=== PATIENT | male | born 1995 | race African-American/Black ===

== ENCOUNTER 2018-02-18 10:43 | Emergency (ER) | payer SELFPAY ==
[2018-02-18 10:48] VITALS: BP 136/94
--- NOTE | 2018-02-18 11:48 | ER Document Report ---
ED General - General Chief Complaint: Psych Problem Stated Complaint: PSYCH EVAL Time Seen by Provider: 02/18/18 10:58 Mode of Arrival: Ambulatory Information source: Patient, Parent Notes: 22-year-old male presents with his father with concerns for substance abuse. Family notes that they have been seeing a therapist and there was a concern of issues versus depression at home. Patient himself denies any suicidal homicidal ideations notes he did think of hurting himself 2 years ago but has not had such thoughts since. Patient notes he was taking some pills for cough medication a month or 2 ago TRAVEL OUTSIDE OF THE [place] IN LAST 30 DAYS: No - HPI Onset: Other Onset/Duration: Intermittent Quality of pain: No pain Severity: Mild Pain Level: Denies Associated symptoms: Other Exacerbated by: Denies Relieved by: Denies Similar symptoms previously: Yes Recently seen / treated by doctor: Yes - Related Data Allergies/Adverse Reactions: No Known Allergies Allergy (Verified 02/18/18 10:57) Past Medical History - Social History Smoking Status: Current Some Day Smoker Cigarette use (# per day): Yes Chew tobacco use (# tins/day): No Smoking Education Provided: No Frequency of alcohol use: None Drug Abuse: None Family History: Reviewed & Not Pertinent Patient has suicidal ideation: No Patient has homicidal ideation: No Renal/ Medical History: Denies: Hx Peritoneal Dialysis - Immunizations Hx Diphtheria, Pertussis, Tetanus Vaccination: Yes Review of Systems - Review of Systems Notes: REVIEW OF SYSTEMS: CONSTITUTIONAL : Denies fever, chills, or sweats. Denies recent illness. EENT: Denies eye, ear, throat, or mouth pain or symptoms. Denies nasal or sinus congestion or discharge. Denies throat, tongue, or mouth swelling or difficulty swallowing. CARDIOVASCULAR: Denies chest pain. Denies palpitations or racing or irregular heart beat. Denies ankle edema. RESPIRATORY: Denies cough, cold, or chest congestion. Denies shortness of breath, difficulty breathing, or wheezing. GASTROINTESTINAL: Denies abdominal pain or distention. Denies nausea, vomiting , or diarrhea. Denies blood in vomitus, stools, or per rectum. Denies black, tarry stools. Denies constipation. GENITOURINARY: Denies difficulty urinating, painful urination, burning, frequency, blood in urine, or discharge. MUSCULOSKELETAL: Denies back or neck pain or stiffness. Denies joint pain or swelling. SKIN: Denies rash, lesions or sores. HEMATOLOGIC : Denies easy bruising or bleeding. LYMPHATIC: Denies swollen, enlarged glands. NEUROLOGICAL: Denies confusion or altered mental status. Denies passing out or loss of consciousness. Denies dizziness or lightheadedness. Denies headache. Denies weakness or paralysis or loss of use of either side. Denies problems with gait or speech. Denies sensory loss, numbness, or tingling. Denies seizures. PSYCHIATRIC: Admits to intermittent depression ALL OTHER SYSTEMS REVIEWED AND NEGATIVE. Dictation was performed using [employer] voice recognition software PHYSICAL EXAMINATION: GENERAL: Well-appearing, well-nourished and in no acute distress. HEAD: Atraumatic, normocephalic. EYES: Pupils equal round and reactive to light, extraocular movements intact, sclera anicteric, conjunctiva are normal. ENT: Nares patent, oropharynx clear without exudates. Moist mucous membranes. NECK: Normal range of motion, supple without lymphadenopathy LUNGS: Breath sounds clear to auscultation bilaterally and equal. No wheezes rales or rhonchi. HEART: Regular rate and rhythm without murmurs ABDOMEN: Soft, nontender, nondistended abdomen. No guarding, no rebound. No masses appreciated. Musculoskeletal: Normal range of motion, no pitting or edema. No cyanosis. NEUROLOGICAL: Cranial nerves grossly intact. Normal speech, normal gait. Normal sensory, motor exams PSYCH: Normal mood, normal affect. SKIN: Warm, Dry, normal turgor, no rashes or lesions noted. Physical Exam - Vital signs Vitals: Temp Pulse Resp BP Pulse Ox 98.4 F 86 18 136/94 H 97 02/18/18 10:47 02/18/18 10:47 02/18/18 10:47 02/18/18 10:47 02/18/18 10:47 Course - Re-evaluation Re-evalutation: 02/18/18 11:56 This appears to be a social issue in the family, especially given the complaints are presented, there are no life-threatening issues noted at this time, full physical examination was performed was benign, the patient's mental health appears stable, he has no suicidal homicidal ideations, I did have mental health evaluate the patient and they agree with assessment, they will provide resources for the family and outpatient follow-up After performing a Medical Screening Examination, I estimate there is LOW risk for any life threatening mental health issues. At this time the patient looks extremely well and has not attempted severe self harm. I have reevaluated this patient multiple times and no significant life threatening changes are noted. The patient and I have discussed the diagnosis and risks, and we agree with discharging home with close follow-up with the understanding that symptoms and presentations can change. We also discussed returning to the Emergency Department immediately if new or worsening symptoms occur. We have discussed the symptoms which are most concerning (hallucinations, thoughts or actions of self harm or harm to others) that necessitate immediate return. - Vital Signs Vital signs: Temp Pulse Resp BP Pulse Ox 98.4 F 86 18 136/94 H 97 02/18/18 10:47 02/18/18 10:47 02/18/18 10:47 02/18/18 10:47 02/18/18 10:47 Discharge - Discharge Clinical Impression: Substance abuse Condition: Stable Disposition: HOME, SELF-CARE Additional Instructions: Please follow-up with the care plan provided to by mental health team
--- NOTE | 2018-02-23 09:19 | PSYCHOLOGICAL NOTE ---
Psych Note - Psych Note Psych Note: Reason for consult: substance abuse Consent Permissions: father in room per patient's request Pt comes to ed from home via pov brought by father for c/o wanting a referral to [facility] or [facility]. pt states he was abusing cough and cold medicine, last intake was december. Pt states this happened for approx 2 weeks taking upwards of 16-18tabs daily. Pt reports he was using it for depression, at the time related to differences with parent. pt state he has never had thoughts of hurting or harming himself. Pt states he feels as though the has developed brain damage on the left side of his brain from abusing these meds. Pt has been to [facility] recently. Pt went to [place] previously with marijuana abuse. pt has been seeing outpt therapy with father. Patient disclosed that he had been using cough and cold pills in attempt to get high is concerned he may have developed brain damage in his left side of his brain; his past reported use is Dec. He continued disclosed that when he was 19 he did marijuana and was sent to [place]. He disclosed that he uses drugs because of his depression however he is "ready to get help." He says he has a difficult time with focus in keeping a job. Comparing current his depression to his depression level when he was 19 and sent to [facility] he disclosed "I am better than I was before." Patient denies any current thoughts of suicidal ideation stating passive thoughts over a year ago "when I was 21." Patient's father disclosed concern the patient may have other psychological issues. He reports the patient got a speeding tickets and he had to remind the patient every day what day to go to court and on the day of court he was still late. 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 He disclosed his younger son is very responsible and the patient just is not. He continued to report the patient watches odd things on YouTube and pretends doing karate. patient's response to any allegation his father uses that he does not agree with is "that's a lie...I am sorry I do not agree with that... no disrespect, I just don't agree with that statement." Patient clarifies things he watches on YouTube or meditation videos as he frequently engages in meditation and other new age mind and body wellness techniques. He confirms this interesting greatly. Clinician notes father consented to tell clinician is episcopalian and disclosed he is a traditional Pentecostal. Patient is alert and orientated to person, place, time and circumstance. Mood is nervous with restricted affect mainly when disagreeing with his father. Patient denies suicidal and homicidal ideation. Delusions are absent and behaviors congruent with intact reality based presentation i.e. organized and linear thought processes. Eye contact was well-maintained. Intellectual abilities appear to be within the average range. Conversational speech was within normal rate, tone and prosody. Attention and concentration were good. Insight, judgment, impulse control are currently good. 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 Patient requested letter of referral to an inpatient psychiatric hospital. Clinician conducted psychoeducation on the differences between inpatient psychological treatment and inpatient substance abuse treatment. Clinician also conducted brief therapeutic intervention between the patient and his father. The patient' s father felt the patient was demonstrating psychological issues while the patient was actually challenging and/or changing his spiritual beliefs and demonstrating behavioral that can be attributed to both his substance abuse and attempting to become an independent adult. Patient was not demonstrating any behaviors indicating responding to internal stimuli as he was able to hold a linear and organized conversation with no difficulty, made good eye contact, conversational speech was within normal rate, tone and prosody and all cognitive functioning such as attention, concentration, insight, judgment, and impulse control are good. Patient is recommended to follow up with substance abuse treatment and was provided the resource list to include IFS contact number for assistance in finding possible inpatient substance abuse treatment. Dr. Gresham was consult on the care and management of this patient; attending physician is in agreement with recommendations and disposition.
== END 2018-02-18 11:52 | disposition home or self-care (01) ==
LOC: ER 10:43
DX: F19.10 Other psychoactive substance abuse, uncomplicated (principal); F17.210 Nicotine dependence, cigarettes, uncomplicated
CPT/HCPCS: 99283

== ENCOUNTER 2018-05-10 12:34 | Emergency (ER) | payer SELFPAY ==
--- NOTE | 2018-05-10 12:55 | ER Document Report ---
ED General - General Stated Complaint: POSSIBLE OVERDOSE Time Seen by Provider: 05/10/18 12:52 Notes: 23-year-old male brought in by EMS after wandering around in the street acting erratic. Possible overdose. Patient not talking. Patient is sitting upright. In no acute distress. Tachycardia but nonfebrile. Blood pressure within normal limits. Patient states that he has been on some cough medication. Patient will not answer all of the questions. TRAVEL OUTSIDE OF THE [place] IN LAST 30 DAYS: No - HPI Onset: Other - Unknown - Related Data Allergies/Adverse Reactions: No Known Allergies Allergy (Verified 02/18/18 10:57) Past Medical History - General Cannot obtain history due to: Uncooperative, Altered mental status - Social History Smoking Status: Unknown if Ever Smoked Family History: Reviewed & Not Pertinent Renal/ Medical History: Denies: Hx Peritoneal Dialysis - Immunizations Hx Diphtheria, Pertussis, Tetanus Vaccination: Yes Review of Systems - Review of Systems -: Yes ROS unobtainable due to patient's medical condition Physical Exam - Vital signs Vitals: Resp Pulse Ox 19 98 05/10/18 12:47 05/10/18 12:47 Interpretation: Tachycardic - General Notes: he is awake and alert appears slightly agitated, General: Alert agitated HEENT: Atraumatic, normocephalic, pupils equal round react to light and accommodation, extraocular muscles are intact, nose is non tender, posterior pharynx is without erythema or exudate. Tongue is unremarkable with mucous membranes dry Heart: Heart with tachycardia rate and rhythm, no murmurs, no rubs, no clicks Lungs: Lungs clear to auscultation bilaterally, no wheezes, rhonchi, rales Abdomen: Abdomen is soft, nontender, nondistended, normal bowel sounds Neuro: cranial nerves II through XII intact, reflexes intact, sensation intact, Extremities:Moving all extremities. Equal strength bilaterally in the upper lower extremities. No significant deformity Skin: No lesions. Skin intact Psych: Altered mental status. Poor insight. Poor judgment. Course - Re-evaluation Re-evalutation: 05/10/18 14:41 Patient is obviously altered. Appears to be tripping. Tachycardic at this time. Ordering Ativan and IV fluids. Attempted to get a head CT but patient would not lie still. Ordering more Ativan and more fluids at this time. 05/10/18 14:49 Patient likely suffering from Robitussin overdose. Admits to taking cough syrup but will not tell me how much. Still remains altered. Getting more Ativan as still tachycardic and altered at this time. Slightly elevated creatinine kinase but otherwise labs are fairly unremarkable. Unable to get CT head or chest x-ray due to his altered mental status. 05/10/18 15:39 Patient with PCP positive on drug screen. Consistent with this presentation here. Ativan has been given. Currently patient is still a little tachycardic with heart rate coming down. Labs otherwise unremarkable with slight elevated CK. Due to the fact that he is altered will attempt to get a head CT just to be safe but more likely this is all drug related. There is some dried blood on the patient but I have been unable to find any 05/10/18 15:43 Patient is in no acute distress at this time. I have discussed the case with my colleague Dr. Chavez. If patient is awake and alert and appropriate he will be stable for discharge. Patient may need to be observed for extended period of time. Ativan as needed for excessive agitation. Anticipate that the effects of his illicit substance usage will wear off shortly. 05/10/18 16:21 Laboratory 05/10/18 05/10/18 05/10/18 12:45 13:01 13:01 WBC 6.9 RBC 4.73 Hgb 14.1 Hct 42.5 MCV 90 MCH 29.9 MCHC 33.3 RDW 13.4 Plt Count 315 Seg Neutrophils % 56.4 Lymphocytes % 28.3 Monocytes % 12.5 Eosinophils % 2.4 Basophils % 0.4 Absolute Neutrophils 3.9 Absolute Lymphocytes 1.9 Absolute Monocytes 0.9 Absolute Eosinophils 0.2 Absolute Basophils 0.0 Sodium 145.1 H Potassium 3.7 Chloride 108 H Carbon Dioxide 30 Anion Gap 7 BUN 11 Creatinine 1.04 Est GFR ( Amer) > 60 Est GFR (Non-Af Amer) > 60 Glucose 80 Calcium 9.4 Total Bilirubin 0.8 Direct Bilirubin 0.3 Neonat Total Bilirubin Not Reportable Neonat Direct Bilirubin Not Reportable Neonat Indirect Bili Not Reportable AST 32 ALT 41 Alkaline Phosphatase 67 Creatine Kinase 210 H Total Protein 6.5 Albumin 3.9 Urine Color Urine Appearance Urine pH Ur Specific [place] Urine Protein Urine Glucose (UA) Urine Ketones Urine Blood Urine Nitrite Urine Bilirubin Urine Urobilinogen Ur Leukocyte Esterase Urine WBC (Auto) Urine RBC (Auto) U Hyaline Cast (Auto) Urine Mucus (Auto) Urine Ascorbic Acid Salicylates < 1.0 L Urine Opiates Screen Urine Methadone Screen Acetaminophen < 10 L Ur Barbiturates Screen Ur Phencyclidine Scrn Ur Amphetamines Screen U Benzodiazepines Scrn Urine Cocaine Screen U Marijuana (THC) Screen Serum Alcohol < 10 05/10/18 05/10/18 14:26 14:26 WBC RBC Hgb Hct MCV MCH MCHC RDW Plt Count Seg Neutrophils % Lymphocytes % Monocytes % Eosinophils % Basophils % Absolute Neutrophils Absolute Lymphocytes Absolute Monocytes Absolute Eosinophils Absolute Basophils Sodium Potassium Chloride Carbon Dioxide Anion Gap BUN Creatinine Est GFR ( Amer) Est GFR (Non-Af Amer) Glucose Calcium Total Bilirubin Direct Bilirubin Neonat Total Bilirubin Neonat Direct Bilirubin Neonat Indirect Bili AST ALT Alkaline Phosphatase Creatine Kinase Total Protein Albumin Urine Color YELLOW Urine Appearance CLEAR Urine pH 6.0 Ur Specific [place] 1.019 Urine Protein NEGATIVE Urine Glucose (UA) NEGATIVE Urine Ketones NEGATIVE Urine Blood NEGATIVE Urine Nitrite NEGATIVE Urine Bilirubin NEGATIVE Urine Urobilinogen 2.0 H Ur Leukocyte Esterase NEGATIVE Urine WBC (Auto) 0 Urine RBC (Auto) 1 U Hyaline Cast (Auto) 4 Urine Mucus (Auto) OCC Urine Ascorbic Acid 40 H Salicylates Urine Opiates Screen UNCONFIRMED POSITIVE Urine Methadone Screen NEGATIVE Acetaminophen Ur Barbiturates Screen NEGATIVE Ur Phencyclidine Scrn UNCONFIRMED POSITIVE Ur Amphetamines Screen NEGATIVE U Benzodiazepines Scrn NEGATIVE Urine Cocaine Screen NEGATIVE U Marijuana (THC) Screen NEGATIVE Serum Alcohol Head CT 05/10/18 13:09 IMPRESSION: NORMAL BRAIN CT WITHOUT CONTRAST. EVIDENCE OF ACUTE STROKE: NO. Chest X-Ray 05/10/18 13:10 IMPRESSION: NO ACUTE RADIOGRAPHIC FINDING IN THE CHEST. - Vital Signs Vital signs: Temp Pulse Resp BP Pulse Ox 98.1 F 119 H 24 H 134/85 H 100 05/10/18 13:19 05/10/18 13:19 05/10/18 15:01 05/10/18 15:01 05/10/18 13:19 - Laboratory Result Diagrams: 05/10/18 13:01 05/10/18 13:01 Laboratory results interpreted by me: 05/10/18 05/10/18 05/10/18 12:45 13:01 14:26 Sodium 145.1 H Chloride 108 H Creatine Kinase 210 H Urine Urobilinogen 2.0 H Urine Ascorbic Acid 40 H Salicylates < 1.0 L Acetaminophen < 10 L - EKG Interpretation by Me EKG shows normal: [place], Intervals, QRS Complexes, ST-T Waves Rate: Tachycardia Discharge - Discharge Clinical Impression: Polysubstance abuse Altered mental status Qualifiers: Altered mental status type: transient alteration of awareness Qualified Code(s) : R40.4 - Transient alteration of awareness Condition: Good Disposition: HOME, SELF-CARE Instructions: Instructions for Home Care Following a Drug Overdose ([facility]), Drug Screening ([facility]) Additional Instructions: It appears that you were altered today because you have used mind altering substances. This is not advisable. Avoid alcohol and drugs. Get plenty of sleep and drink plenty of liquids. Please follow-up with your regular doctor. If symptoms persist please return.
[2018-05-10] MEDS ORDERED: NORMAL SALINE 1000 ML 1,000 ML IV ONE ×2 (13:10→14:37)
[2018-05-10 13:18] LABS: ACETAMINOPHEN < 10 ug/mL (10-30); SALICYLATE < 1.0 mg/dL (2.0-20.0)
[2018-05-10 13:57] LABS: ABSOLUTE EOSINOPHILS # (AUTO) 0.2 10^3/uL (0.0-0.6); ABSOLUTE LYMPHOCYTES (AUTO) 1.9 10^3/uL (0.5-4.7); ABSOLUTE MONOCYTES (AUTO) 0.9 10^3/uL (0.1-1.4); ABSOLUTE NEUT (AUTO) 3.9 10^3/uL (1.7-8.2); BASOPHILS % (AUTO) 0.4 % (0-2); EOSINOPHILS % (AUTO) 2.4 % (0-6); HEMATOCRIT 42.5 % (37.9-51.0); HEMOGLOBIN 14.1 g/dL (13.5-17.0); LYMPHOCYTES % (AUTO) 28.3 % (13-45); MEAN CORPUSCULAR HEMOGLOBIN 29.9 pg (27.0-33.4); MEAN CORPUSCULAR HGB CONC 33.3 g/dL (32.0-36.0); MEAN CORPUSCULAR VOLUME 90 fl (80-97); MONOCYTES % (AUTO) 12.5 % (3-13); PLATELET COUNT 315 10^3/uL (150-450); RED BLOOD COUNT 4.73 10^6/uL (4.35-5.55); RED CELL DISTRIBUTION WIDTH 13.4 % (11.5-14.0); SEGMENTED NEUTROPHILS % (AUTO) 56.4 % (42-78); TOTAL CELLS COUNTED % (AUTO) 100 %; WHITE BLOOD COUNT 6.9 10^3/uL (4.0-10.5)
[2018-05-10] MEDS ORDERED: LORAZEPAM INJ 2 MG/1 ML VIAL IV ONE ×2 (14:04→14:41)
[2018-05-10 14:06] LABS: ALANINE AMINOTRANSFERASE 41 U/L (21-72); ALBUMIN 3.9 g/dL (3.5-5.0); ALCOHOL < 10 mg/dL (NONE DETECTED); ALKALINE PHOSPHATASE 67 U/L (38-126); ANION GAP 7 (5-19); ASPARTATE AMINO TRANSFERASE 32 U/L (17-59); BILIRUBIN,DIRECT 0.3 mg/dL (0.0-0.4); BILIRUBIN,TOTAL 0.8 mg/dL (0.2-1.3); BLOOD UREA NITROGEN 11 mg/dL (7-20); CALCIUM 9.4 mg/dL (8.4-10.2); CARBON DIOXIDE 30 mmol/L (22-30); CHLORIDE 108 mmol/L (98-107); CREATINE KINASE 210 U/L (55-170); GLUCOSE 80 mg/dL (75-110); POTASSIUM 3.7 mmol/L (3.6-5.0); SODIUM 145.1 mmol/L (137-145); TOTAL PROTEIN 6.5 g/dL (6.3-8.2)
[2018-05-10 14:57] LABS: APPEARANCE,URINE CLEAR; BILIRUBIN,URINE NEGATIVE (NEGATIVE); COLOR,URINE YELLOW; GLUCOSE, URINE NEGATIVE (NEGATIVE); KETONES,URINE NEGATIVE (NEGATIVE); LEUKOCYTE ESTERASE,URINE NEGATIVE (NEGATIVE); NITRITE,URINE NEGATIVE (NEGATIVE); PROTEIN,URINE NEGATIVE (NEGATIVE); URINE SPECIFIC GRAVITY 1.019
[2018-05-10 15:10] LABS: URINE AMPHETAMINES SCREEN NEGATIVE; URINE BARBITURATES SCREEN NEGATIVE; URINE BENZODIAZEPINES SCREEN NEGATIVE; URINE COCAINE SCREEN NEGATIVE; URINE MARIJUANA (THC) SCREEN NEGATIVE; URINE METHADONE SCREEN NEGATIVE; URINE PHENCYCLIDINE SCREEN UNCONFIRMED POSITIVE
--- NOTE | 2018-05-10 15:19 | RADIOLOGY REPORT (SQ) ---
EXAM DESCRIPTION: CHEST SINGLE VIEW COMPLETED DATE/TIME: 05/10/2018 3:10 pm REASON FOR STUDY: sob COMPARISON: None. EXAM PARAMETERS: NUMBER OF VIEWS: One view. TECHNIQUE: Single frontal radiographic view of the chest acquired. RADIATION DOSE: NA LIMITATIONS: None. FINDINGS: LUNGS AND PLEURA: No opacities, masses or pneumothorax. No pleural effusion. MEDIASTINUM AND HILAR STRUCTURES: No masses. Contour normal. HEART AND VASCULAR STRUCTURES: Heart normal in size. Normal vasculature. BONES: No acute findings. HARDWARE: None in the chest. OTHER: No other significant finding. IMPRESSION: NO ACUTE RADIOGRAPHIC FINDING IN THE CHEST. TECHNICAL DOCUMENTATION: JOB ID: [id number] [employer]- All Rights Reserved Reading location - IP/workstation name: [email or web address]
[2018-05-10] MEDS ORDERED: LORAZEPAM INJ 2 MG/1 ML VIAL IV PRN (16:03)
--- NOTE | 2018-05-10 16:07 | RADIOLOGY REPORT (SQ) ---
EXAM DESCRIPTION: CT HEAD WITHOUT COMPLETED DATE/TIME: 05/10/2018 3:53 pm REASON FOR STUDY: altered COMPARISON: None. TECHNIQUE: Axial images acquired through the brain without intravenous contrast. Images reviewed wi th bone, brain and subdural windows. Images stored on PACS. All CT scanners at this facility use dose modulation, iterative reconstruction, and/or weight based d osing when appropriate to reduce radiation dose to as low as reasonably achievable (ALARA). [facility]: Dose Right [facility]: CareDose [facility]: Dose Right [facility]: Teradose 4D [facility]: Bi02 Medical RADIATION DOSE: CT Rad equipment meets quality standard of care and radiation dose reduction techniq ues were employed. CTDIvol: 53.2 mGy. DLP: 1097 mGy-cm. mGy. LIMITATIONS: None. FINDINGS: VENTRICLES: Normal size and contour. CEREBRUM: No masses. No hemorrhage. No midline shift. No evidence for acute infarction. Normal gra y/white matter differentiation. No areas of low density in the white matter. CEREBELLUM: No masses. No hemorrhage. No alteration of density. No evidence for acute infarction. EXTRAAXIAL SPACES: No fluid collections. No masses. ORBITS AND GLOBE: No intra- or extraconal masses. Normal contour of globe without masses. CALVARIUM: No fracture. PARANASAL SINUSES: No fluid or mucosal thickening. SOFT TISSUES: No mass or hematoma. OTHER: No other significant finding. IMPRESSION: NORMAL BRAIN CT WITHOUT CONTRAST. EVIDENCE OF ACUTE STROKE: NO. COMMENT: Quality ID # [id number]: Final reports with documentation of one or more dose reduction techniques (e.g., Automated exposure control, adjustment of the mA and/or kV according to patient size, use of iterative reconstruction technique) TECHNICAL DOCUMENTATION: JOB ID: [id number] [employer]- All Rights Reserved Reading location - IP/workstation name: [email or web address]
--- NOTE | 2018-05-10 22:54 | EKG REPORT ---
SEVERITY:- BORDERLINE ECG - SINUS TACHYCARDIA BORDERLINE RIGHT AXIS DEVIATION LVH BY VOLTAGE : Confirmed by: Paula Valdez 10-May-2018 22:54:03
[2018-05-11 00:26] VITALS: BP 151/100
== END 2018-05-10 23:55 | disposition home or self-care (01) ==
LOC: ER 12:34
DX: T48.4X1A Poisoning by expectorants, accidental (unintentional), initial encounter (principal); R40.4 Transient alteration of awareness; F19.10 Other psychoactive substance abuse, uncomplicated; X58.XXXA Exposure to other specified factors, initial encounter; R00.0 Tachycardia, unspecified
CPT/HCPCS: 93005; 96376; 99285; 96361; 96374; 36415; 80307 ×4; 82550; 85025; 80053; 81001; 71045; 70450; 93010; J2060; J7030

== ENCOUNTER 2018-07-11 10:48 | Emergency (ER) | payer SELFPAY ==
[2018-07-11] MEDS ORDERED: NORMAL SALINE 1000 ML 1,000 ML IV ONE (11:23)
[2018-07-11 11:37] LABS: ABSOLUTE EOSINOPHILS # (AUTO) 0.1 10^3/uL (0.0-0.6); ABSOLUTE LYMPHOCYTES (AUTO) 1.5 10^3/uL (0.5-4.7); ABSOLUTE MONOCYTES (AUTO) 1.1 10^3/uL (0.1-1.4); ABSOLUTE NEUT (AUTO) 7.2 10^3/uL (1.7-8.2); BASOPHILS % (AUTO) 0.5 % (0-2); EOSINOPHILS % (AUTO) 0.7 % (0-6); HEMATOCRIT 43.8 % (37.9-51.0); HEMOGLOBIN 15.1 g/dL (13.5-17.0); LYMPHOCYTES % (AUTO) 15.3 % (13-45); MEAN CORPUSCULAR HEMOGLOBIN 30.5 pg (27.0-33.4); MEAN CORPUSCULAR HGB CONC 34.4 g/dL (32.0-36.0); MEAN CORPUSCULAR VOLUME 89 fl (80-97); MONOCYTES % (AUTO) 11.3 % (3-13); PLATELET COUNT 298 10^3/uL (150-450); RED BLOOD COUNT 4.93 10^6/uL (4.35-5.55); RED CELL DISTRIBUTION WIDTH 13.5 % (11.5-14.0); SEGMENTED NEUTROPHILS % (AUTO) 72.2 % (42-78); TOTAL CELLS COUNTED % (AUTO) 100 %
[2018-07-11 11:49] LABS: ALANINE AMINOTRANSFERASE 22 U/L (21-72); ALBUMIN 4.5 g/dL (3.5-5.0); ALKALINE PHOSPHATASE 71 U/L (38-126); ANION GAP 11 (5-19); ASPARTATE AMINO TRANSFERASE 34 U/L (17-59); BILIRUBIN,DIRECT 0.2 mg/dL (0.0-0.4); BILIRUBIN,TOTAL 0.7 mg/dL (0.2-1.3); BLOOD UREA NITROGEN 14 mg/dL (7-20); CALCIUM 9.9 mg/dL (8.4-10.2); CARBON DIOXIDE 29 mmol/L (22-30); CHLORIDE 105 mmol/L (98-107); GLUCOSE 80 mg/dL (75-110); SODIUM 145.1 mmol/L (137-145); TOTAL PROTEIN 7.6 g/dL (6.3-8.2)
[2018-07-11 11:52] LABS: ACETAMINOPHEN < 10 ug/mL (10-30); ALCOHOL < 10 mg/dL (NONE DETECTED); SALICYLATE < 1.0 mg/dL (2.0-20.0)
--- NOTE | 2018-07-11 12:43 | ER Document Report ---
ED Dizziness/Weakness - General Chief Complaint: Altered Mental Status Stated Complaint: ALTERED MENTAL STATUS Time Seen by Provider: 07/11/18 11:20 Mode of Arrival: Medic Information source: Patient TRAVEL OUTSIDE OF THE [place] IN LAST 30 DAYS: No - HPI Patient complains to provider of: Altered mental status, Other - This 23-year- old man presents for evaluation of intoxication as a result of taking cough and cold medicine today, he is a noted history of taking cough and cold medicine to become intoxicated in the past. He has no history of intentional overdose, no suicidality, no mental health problems. He denies any other coingestions. Notes that he has used alcohol in the past but no other substances. He denies any health problems medication usage or other symptoms. - Related Data Allergies/Adverse Reactions: No Known Allergies Allergy (Verified 02/18/18 10:57) Past Medical History - General Information source: Patient Cannot obtain history due to: Altered mental status - Social History Smoking Status: Unknown if Ever Smoked Cigarette use (# per day): No Family History: Reviewed & Not Pertinent Renal/ Medical History: Denies: Hx Peritoneal Dialysis - Immunizations Hx Diphtheria, Pertussis, Tetanus Vaccination: Yes Review of Systems - Review of Systems -: Yes All other systems reviewed and negative Physical Exam - Vital signs Vitals: Pulse Ox 99 07/11/18 11:07 - General General appearance: Lethargic In distress: None - HEENT Head: Normocephalic Eyes: Normal, Other - Occasional nystagmus Conjunctiva: Injected Cornea: Normal Extraocular movements intact: Yes Ears: Normal Nasal: Normal Mouth/Lips: Normal Mucous membranes: Normal Pharynx: Normal Neck: Normal - Respiratory Respiratory status: No respiratory distress Chest status: Nontender Breath sounds: Normal Chest palpation: Normal - Cardiovascular Rhythm: Regular Heart sounds: Normal auscultation Murmur: No - Abdominal Inspection: Normal Distension: No distension Tenderness: Nontender - Back Back: Normal - Extremities General upper extremity: Normal inspection General lower extremity: Normal inspection - Neurological Neuro grossly intact: Yes Cognition: Other - Intoxicated slightly disoriented Orientation: AAOx4 [place] Coma Scale Eye Opening: Spontaneous [place] Coma Scale Verbal: Oriented [place] Coma Scale Motor: Obeys Commands [place] Coma Scale Total: 15 Speech: Normal Cranial nerves: Normal Motor strength normal: LUE, RUE, LLE, RLE - Psychological Associated symptoms: Other - Intoxicated but pleasant Course - Re-evaluation Re-evalutation: 07/11/18 17:58 This is a 23-year-old man who presents for evaluation after cough and cold medicine ingestion. He has a history of doing such in the past. As he is somewhat intoxicated and unclear whether or not he is a co-ingestion will plan for acetaminophen level testing at adult at least 3 hours. We will plan for monitoring reassessment administration of IV fluids and close observation. Chemistry encounter unremarkable patient's Tylenol level is negative as well as repeat. On reevaluation of the patient he is improved as far as his cognition mental status states that he is using cough medicine to become intoxicated intentionally. Because he is improved now able tolerate p.o. ambulatory believe is safe for discharge, I have called his father to come and pick him up as he is unable to obtain transport otherwise at this time. Plan will be for this patient to undergo discharge with return precautions. - Vital Signs Vital signs: Temp Pulse Resp BP Pulse Ox 99.0 F 20 147/96 H 99 07/11/18 13:41 07/11/18 16:30 07/11/18 16:30 07/11/18 16:30 - Laboratory Result Diagrams: 07/11/18 11:09 07/11/18 11:09 Laboratory results interpreted by me: 07/11/18 07/11/18 07/11/18 11:09 12:07 15:00 Sodium 145.1 H Urine Ketones TRACE H Urine Urobilinogen 2.0 H Salicylates < 1.0 L Acetaminophen < 10 L < 10 L Discharge - Discharge Clinical Impression: Intoxication, Drug abuse Condition: Good Disposition: HOME, SELF-CARE Instructions: Instructions for Home Care Following a Drug Overdose (OM) Additional Instructions: He was seen today in the emergency department after overdosing on medication, stop taking Robitussin or cold medicine to cause yourself to become drunk. Did not use any other alcohol, drugs, cigarettes, seek help if you continue to want to use drugs. Forms: Elevated Blood Pressure, Smoking Cessation Education
[2018-07-11 12:49] LABS: AMORPHOUS SEDIMENT,URINE TRACE /HPF; APPEARANCE,URINE CLOUDY; BILIRUBIN,URINE NEGATIVE (NEGATIVE); COLOR,URINE YELLOW; GLUCOSE, URINE NEGATIVE (NEGATIVE); KETONES,URINE TRACE mg/dL (NEGATIVE); LEUKOCYTE ESTERASE,URINE NEGATIVE (NEGATIVE); NITRITE,URINE NEGATIVE (NEGATIVE); PROTEIN,URINE NEGATIVE (NEGATIVE); URINE SPECIFIC GRAVITY 1.023
[2018-07-11 13:10] LABS: URINE AMPHETAMINES SCREEN NEGATIVE; URINE BARBITURATES SCREEN NEGATIVE; URINE BENZODIAZEPINES SCREEN NEGATIVE; URINE COCAINE SCREEN NEGATIVE; URINE MARIJUANA (THC) SCREEN NEGATIVE; URINE METHADONE SCREEN NEGATIVE; URINE PHENCYCLIDINE SCREEN UNCONFIRMED POSITIVE
[2018-07-11 18:23] VITALS: BP 126/97
--- NOTE | 2018-07-11 22:57 | EKG REPORT ---
SEVERITY:- BORDERLINE ECG - SINUS TACHYCARDIA BORDERLINE PROLONGED QT INTERVAL : Confirmed by: Paula Valdez 11-Jul-2018 22:56:59
== END 2018-07-11 18:50 | disposition home or self-care (01) ==
LOC: ER 10:48
DX: F19.129 Other psychoactive substance abuse with intoxication, unspecified (principal); R41.82 Altered mental status, unspecified
CPT/HCPCS: 93005; 99284; 96360; 36415; 80307 ×4; 85025; 80053; 81001; 93010; J7030